=== PATIENT | male | born 1945 | race Caucasian/White ===

== ENCOUNTER 2021-09-27 08:44 | Emergency (ER) | payer OTHER ==
--- OUTSIDE RECORDS SUMMARY | 2021-09-27 08:51 | XMS REPORT | Continuity of Care Document ---
:1945 Author Organization [facility] t Address [address] [place] [address] Care Team Providers Name Role Phone TINY Primary Care Physician Unavailable MIKY Attending Clinician Unavailable Attending Clinician Unavailable Estefany PRAKASH Attending Clinician Unavailable YENY SALDANA Attending Clinician Unavailable NEIL BOLAÑOS Attending Clinician Unavailable Tisha LINDSEY, Not In Attending Clinician Unavailable Parvin Attending Clinician Unavailable Porfirio Attending Clinician [phone] Radiology Attending Clinician Unavailable Lab, Fam Pob I Attending Clinician Unavailable Collins Chaves Attending Clinician Collins CISSE Attending Clinician Unavailable Doctor Unassigned, Name Attending Clinician Unavailable IMAN MENDOZA Attending Clinician Unavailable Porfirio_Gordon Admitting Clinician Unavailable Payers Payer Name Policy Type Policy Number Effective Date Expiration Date S lorenzo [employer] MEDICARE PPO [id number] 2016 2021 00:00:00 00:00:00 [employer] (MEDICARE [id number] 2016 REPLACEMENT PPO) 00:00:00 Problems Condition Condition Condition Status Onset Resolution Last Treating Co mments Source Name Details Category Date Date Treatment Clinician Date 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 [facility] labrum labrum 0-28 Health anterior-t anterior-t 00:00: o-posterio o-posterio 00 r (SLAP) r (SLAP) tear of tear of left left shoulder shoulder Traumatic Traumatic Disease Active 2020-07 [facility] tear of tear of 0 Health supraspina supraspina 00:00: tus tendon tus tendon 00 of left of left shoulder shoulder Presence Presence Disease Active 2020-07 [facility] of left of left 0-07 Health artificial artificial 00:00: hip joint hip joint 00 Impingemen Impingemen Disease Active 2020-07 U T t syndrome t syndrome 007 He alth of left of left 00:00: shoulder shoulder 00 Acute pain Acute pain Disease Active 2020-07 U T of left of left 0- Health shoulder shoulder 00:00: 00 Left hip Left hip Disease Active [facility] pain pain 02-25 Health 00:00: 00 Primary Primary Disease Active UT osteoarthr osteoarthr 02-25 He alth itis of itis of 00:00: left hip left hip 00 Class 1 Class 1 Disease Active [facility] obesity obesity 02-25 Health due to due to 00:00: excess excess 00 calories calories with with serious serious comorbidit comorbidit y and body y and body mass index mass index (BMI) of (BMI) of 32.0 to 32.0 to 32.9 in 32.9 in adult adult Limp Limp Disease Active [facility] 02[facility] 00:00: 00 No known No known Disease Unive rs active active ity of problems problems [place] [facility] Allergies, Adverse Reactions, Alerts Allergy Allergy Status Severity Reaction(s) Onset Inactive Treating Comm ents Source Name Type Date Date Clinician Iodine Allergy Active [facility] to 02-25 Health substanc 00:00: e 00 Iodine Propensi Active Other - See SORE Uni vers And ty to comments 3-14 THROAT - ity of Iodide adverse 00:00: PT STATES [place] Containi reaction 00 he is not Med ical ng s allergic Branch Products to topical iodine IODINE Drug Active Other-Cmnt Univer s AND Class 3-14 ity of IODIDE 00:00: [place] CONTAINI 00 Medical NG Branch PRODUCTS Sulfa Propensi Active Other SORE [facility] Antibiot ty to 3-14 THROAT - Health ics adverse 00:00: PT STATES reaction 00 he is not s allergic to topical iodine Social History Social Habit Start Date Stop Date Quantity Comments Source Exposure to Not sure [facility] SARS-CoV-2 (event) Tobacco use and 2019-06-11 2019-06-11 Never used Universit y of exposure 00:00:00 00:00:00 [facility] Alcohol intake 2019-06-11 2019-06-11 Current drinker of Un iversity of 00:00:00 00:00:00 alcohol (finding) [place] [facility] History [facility] 2018-12-06 2018-12-06 2 University o f Alcohol Frequency 00:00:00 00:00:00 [place] [facility] History [facility] 2018-12-06 2018-12-06 1 University o f Alcohol Std 00:00:00 00:00:00 [place] [facility] History [facility] 2018-12-06 2018-12-06 1 University o f Alcohol Binge 00:00:00 00:00:00 [place] [facility] Alcohol Comment 2018-12-06 2018-12-06 Patient states he Un iversity of 00:00:00 00:00:00 occasionally [place] [facility]. Branch Sex Ass[birth year] At [birth year] [facility] of 00:00:00 00:00:00 [facility] Smoking Status Start Date Stop Date Source Never smoked tobacco [facility] Medications Ordered Filled Start Stop Current Ordering Indication Dosage Frequency Signature Comments Components Source Medication Medication Date Date Medication? Clinician (SIG) Name Name bupivacaine 2021- No [id number] 1mL UT (Marcaine) 09-10 Health 0.25 % 16:52: 16:52 injection 1 13 :00 mL lidocaine 2021- No [id number] 1mL UT (Xylocaine) 09-10 Health 1 % 16:52: 16:52 injection 1 13 :00 mL triamcinolo 2021- No [id number] 10mg UT ne 09-10 Health acetonide 16:52: 16:52 (Kenalog) 13 :00 10 MG/ML injection 10 mg triamcinolo 2021- No [id number] 10mg 10 mg, UT ne 09-10 [facility] acetonide 16:52: 16:52 cular, (Kenalog) 13 :00 Once PRN 10 MG/ML Procedure, injection Starting 10 mg on Sherice 3/10/22 at 1052, For 1 dose lidocaine 2021- No [id number] 1mL 1 mL, U T (Xylocaine) 09-10 Injection, H ealth 1 % 16:52: 16:52 Once PRN injection 1 13 :00 Procedure, mL Starting on Sherice 09/10/21 at 1052, For 1 dose bupivacaine 2021- No [id number] 1mL 1 mL, UT (Marcaine) 09-10 Injection, He alth 0.25 % 16:52: 16:52 Once PRN injection 1 13 :00 Procedure, mL Starting on Sherice 09/10/21 at 1052, For 1 dose Diclofenac 2021- Yes [id number] Apply UT Sodium 09-10 [id number] topically H ealth (Voltaren) 00:00: 04:59 3D 3 (three) 1 % 00 :00 times a external day if gel needed (pain). APPLY 4 GRAMS TO AFFECTED AREA DO NOT EXCEED 16 GRAMS every day amoxicillin 2020-07 Yes [id number] Take 4 UT (Amoxil) 08-12 capsules Health 500 MG 00:00: one hour capsule 00 prior to procedure. Take 4 capsules one hour after procedure. amoxicillin 2020-07 Yes [id number] Take 4 UT (Amoxil) 2- capsules Health 500 MG 00:00: one hour capsule 00 prior to procedure. Take 4 capsules one hour after procedure. Diclofenac 2020-07- No [id number] Q.[id number] Apply UT Sodium 08-12 [id number] topically H ealth (Voltaren) 00:00: 05:59 3D 3 (three) 1 % 00 :00 times a external day if gel needed (pain). Apply 4 grams to affected area do not exceed 16 grams every day amoxicillin 2020-07- No [id number] Take 4 UT (Amoxil) 08-12 capsules Health 500 MG 00:00: 00:00 one hour capsule 00 :00 prior to procedure. Take 4 capsules one hour after procedure. naloxone 2020-07- No [id number] .4mg Administer UT (Narcan) 2 0-29 10-30 0.4 mL Health MG/2ML 00:00: 04:59 (0.4 mg injection 00 :00 total) into affected nostril(s) if needed for opioid reversal. May repeat every 2-3 minutes as needed until medical assistance available. naloxone 2020-07- No [id number] .4mg Administer UT (Narcan) 2 0-29 10-30 0.4 mL Health MG/2ML 00:00: 04:59 (0.4 mg injection 00 :00 total) into affected nostril(s) if needed for opioid reversal. May repeat every 2-3 minutes as needed until medical assistance available. naloxone 2020-07- No [id number] .4mg Administer UT (Narcan) 2 0-29 10-30 0.4 mL Health MG/2ML 00:00: 04:59 (0.4 mg injection 00 :00 total) into affected nostril(s) if needed for opioid reversal. May repeat every 2-3 minutes as needed until medical assistance available. HYDROcodone 2020-07- No [id number] 1{tbl} Take 1 UT -acetaminop 0-29 12-29 tablet by He alth hen ([place]) 00:00: 05:59 mouth 10-325 MG 00 :00 every 4 tablet (four) hours if needed for severe pain (Pain). HYDROcodone 2020-07 No [id number] 1{tbl} Take 1 UT -acetaminop 0-29 12-29 tablet by He alth hen ([place]) 00:00: 05:59 mouth 10-325 MG 00 :00 every 4 tablet (four) hours if needed for severe pain (Pain). bupivacaine 2020-07- No [id number] 1mL UT (Marcaine) 0-04-30 Health 0.25 % 14:38: 14:38 injection 1 38 :00 mL lidocaine 2020-07- No [id number] 1mL UT (Xylocaine) 0- 10-28 Health 1 % 14:38: 14:38 injection 1 38 :00 mL triamcinolo 2020-07- No [id number] 10mg UT ne 0-28 10-28 Health acetonide 14:38: 14:38 (Kenalog) 38 :00 10 MG/ML injection 10 mg triamcinolo 2020-07 No [id number] 10mg 10 mg, UT ne 0-30 04- [facility] acetonide 14:38: 14:38 cular, (Kenalog) 38 :00 Once PRN 10 MG/ML Procedure, injection Starting 10 mg on Sherice 04/30/21 at 0938, For 1 dose lidocaine 2020-07- No [id number] 1mL 1 mL, U T (Xylocaine) 004-30 Injection, H ealth 1 % 14:38: 14:38 Once PRN injection 1 38 :00 Procedure, mL Starting on Sherice 04/30/21 at 0938, For 1 dose bupivacaine 2020-07- No [id number] 1mL 1 mL, UT (Marcaine) 004-30 Injection, He alth 0.25 % 14:38: 14:38 Once PRN injection 1 38 :00 Procedure, mL Starting on Sherice 04/30/21 at 0938, For 1 dose Diclofenac 2020-07- No [id number] Q.[id number] Apply UT Sodium 0-28 - 9104 [id number] topically H ealth (Voltaren) 00:00: 05:59 3D 3 (three) 1 % 00 :00 times a external day if gel needed (pain). Apply four grams to affected area not to exceed 16 grams every day Diclofenac 2020-07- No [id number] Q.[id number] Apply UT Sodium 0-31 05- 9104 [id number] topically H ealth (Voltaren) 00:00: 05:59 3D 3 (three) 1 % 00 :00 times a external day if gel needed (pain). Apply four grams to affected area not to exceed 16 grams every day Diclofenac 2020-07- No [id number] Apply UT Sodium 0- 11- [id number] topically H ealth (Voltaren) 00:00: 04:59 3D 3 (three) 1 % 00 :00 times a external day if gel needed (pain). Diclofenac 2020-07- No [id number] Q.[id number] Apply UT Sodium 0-07 11- [id number] topically H ealth (Voltaren) 00:00: 04:59 3D 3 (three) 1 % 00 :00 times a external day if gel needed (pain). Diclofenac 2020-07 [id number] Q.[id number] Apply UT Sodium 0-07 04-30 [id number] topically H ealth (Voltaren) 00:00: 00:00 3D 3 (three) 1 % 00 :00 times a external day if gel needed (pain). omeprazole 2020-07 Yes [id number] TAKE 1 UT (PriLOSEC) 0-04 CAPSULE BY [facility]a l[facility] [address] 00:00: MOUTH capsule 00 EVERY DAY IN THE MORNING BEFORE BREAKFAST omeprazole 2020-07 Yes [id number] TAKE 1 UT (PriLOSEC) 0-04 CAPSULE BY [facility] [address] 00:00: MOUTH capsule 00 EVERY DAY IN THE MORNING BEFORE BREAKFAST omeprazole 2020-07 Yes [id number] TAKE 1 UT (PriLOSEC) 0-04 CAPSULE BY [facility]a [facility] [address] 00:00: MOUTH capsule 00 EVERY DAY IN THE MORNING BEFORE BREAKFAST omeprazole 2020-07 Yes [id number] TAKE 1 UT (PriLOSEC) 0-04 CAPSULE BY [facility]a [facility] [address] 00:00: MOUTH capsule 00 EVERY DAY IN THE MORNING BEFORE BREAKFAST omeprazole 2020-07 Yes [id number] TAKE 1 UT (PriLOSEC) 0-04 CAPSULE BY [facility]a [facility] [address] 00:00: MOUTH capsule 00 EVERY DAY IN THE MORNING BEFORE BREAKFAST omeprazole 2020-07 Yes [id number] TAKE 1 UT (PriLOSEC) 0-04 CAPSULE BY [facility]a [facility] [address] 00:00: MOUTH capsule 00 EVERY DAY IN THE MORNING BEFORE BREAKFAST omeprazole 2020-07 Yes [id number] TAKE 1 UT (PriLOSEC) 0-04 CAPSULE BY [facility]a [facility] [address] 00:00: MOUTH capsule 00 EVERY DAY IN THE MORNING BEFORE BREAKFAST omeprazole 2020-07 Yes [id number] TAKE 1 UT (PriLOSEC) 0-04 CAPSULE BY [facility]a l[facility] [address] 00:00: MOUTH capsule 00 EVERY DAY IN THE MORNING BEFORE BREAKFAST omeprazole 2020-07 Yes [id number] TAKE 1 UT (PriLOSEC) 0-04 CAPSULE BY [facility]a lth [address] 00:00: MOUTH capsule 00 EVERY DAY IN THE MORNING BEFORE BREAKFAST oxyCODONE-a 0 Yes [id number] 1{tbl} Take 1 UT cetaminophe 9-10 9108 tablet by [facility] n 00:00: mouth (Percocet) 00 every 4 10-325 MG (four) tablet hours if needed (pain) for up to 60 doses. tamsulosin 0 Yes [id number] .4mg QD Take 1 U T (Flomax) 9-10 capsule Health 0.4 MG 24 00:00: (0.4 mg hr capsule 00 total) by mouth 1 (one) time each day. oxyCODONE-a Yes [id number] 1{tbl} Take 1 UT cetaminophe 9-10 9108 tablet by [facility] n 00:00: mouth (Percocet) 00 every 4 10-325 MG (four) tablet hours if needed (pain) for up to 60 doses. tamsulosin 0 Yes [id number] .4mg QD Take 1 U T (Flomax) 9-10 capsule Health 0.4 MG 24 00:00: (0.4 mg hr capsule 00 total) by mouth 1 (one) time each day. oxyCODONE-a 2020- Yes [id number] 1{tbl} Take 1 UT cetaminophe 9-10 9108 tablet by [facility] n 00:00: mouth (Percocet) 00 every 4 10-325 MG (four) tablet hours if needed (pain) for up to 60 doses. tamsulosin 0 Yes [id number] .4mg QD Take 1 U T (Flomax) 9-10 capsule Health 0.4 MG 24 00:00: (0.4 mg hr capsule 00 total) by mouth 1 (one) time each day. oxyCODONE-a 2020-0 Yes [id number] 1{tbl} Take 1 UT cetaminophe 9-10 9108 tablet by [facility] n 00:00: mouth (Percocet) 00 every 4 10-325 MG (four) tablet hours if needed (pain) for up to 60 doses. tamsulosin 2020-0 Yes [id number] .4mg QD Take 1 U T (Flomax) 9-10 capsule Health 0.4 MG 24 00:00: (0.4 mg hr capsule 00 total) by mouth 1 (one) time each day. oxyCODONE-a Yes [id number] 1{tbl} Take 1 UT cetaminophe 9-10 9108 tablet by [facility] n 00:00: mouth (Percocet) 00 every 4 10-325 MG (four) tablet hours if needed (pain) for up to 60 doses. tamsulosin Yes [id number] .4mg QD Take 1 U T (Flomax) 9-10 capsule Health 0.4 MG 24 00:00: (0.4 mg hr capsule 00 total) by mouth 1 (one) time each day. oxyCODONE-a Yes [id number] 1{tbl} Take 1 UT cetaminophe 9-10 9108 tablet by [facility] n 00:00: mouth (Percocet) 00 every 4 10-325 MG (four) tablet hours if needed (pain) for up to 60 doses. tamsulosin Yes [id number] .4mg QD Take 1 U T (Flomax) 9-10 capsule Health 0.4 MG 24 00:00: (0.4 mg hr capsule 00 total) by mouth 1 (one) time each day. oxyCODONE-a Yes [id number] 1{tbl} Take 1 UT cetaminophe 9-10 9108 tablet by [facility] n 00:00: mouth (Percocet) 00 every 4 10-325 MG (four) tablet hours if needed (pain) for up to 60 doses. oxyCODONE-a Yes [id number] 1{tbl} Take 1 UT cetaminophe 9-10 9108 tablet by [facility] n 00:00: mouth (Percocet) 00 every 4 10-325 MG (four) tablet hours if needed (pain) for up to 60 doses. tamsulosin 0 Yes [id number] .4mg QD Take 1 U T (Flomax) 9-10 capsule Health 0.4 MG 24 00:00: (0.4 mg hr capsule 00 total) by mouth 1 (one) time each day. oxyCODONE-a Yes [id number] 1{tbl} Take 1 UT cetaminophe 9-10 9108 tablet by [facility] n 00:00: mouth (Percocet) 00 every 4 10-325 MG (four) tablet hours if needed (pain) for up to 60 doses. tamsulosin 2020-0 Yes [id number] .4mg QD Take 1 U T (Flomax) 9-10 capsule Health 0.4 MG 24 00:00: (0.4 mg hr capsule 00 total) by mouth 1 (one) time each day. oxyCODONE-a 0 Yes [id number] 1{tbl} Take 1 UT cetaminophe 9-10 9108 tablet by [facility] n 00:00: mouth (Percocet) 00 every 4 10-325 MG (four) tablet hours if needed (pain) for up to 60 doses. tamsulosin 2020-0 Yes [id number] .4mg QD Take 1 U T (Flomax) 9-10 capsule Health 0.4 MG 24 00:00: (0.4 mg hr capsule 00 total) by mouth 1 (one) time each day. oxyCODONE-a 2020-0 Yes [id number] 1{tbl} Take 1 UT cetaminophe 9-10 9108 tablet by [facility] n 00:00: mouth (Percocet) 00 every 4 10-325 MG (four) tablet hours if needed (pain) for up to 60 doses. tamsulosin 2020-0 Yes [id number] .4mg QD Take 1 U T (Flomax) 9-10 capsule Health 0.4 MG 24 00:00: (0.4 mg hr capsule 00 total) by mouth 1 (one) time each day. oxyCODONE-a 2020-0 Yes [id number] 1{tbl} Take 1 UT cetaminophe 9-10 9108 tablet by [facility] n 00:00: mouth (Percocet) 00 every 4 10-325 MG (four) tablet hours if needed (pain) for up to 60 doses. tamsulosin 2020-0 Yes [id number] .4mg QD Take 1 U T (Flomax) 9-10 capsule Health 0.4 MG 24 00:00: (0.4 mg hr capsule 00 total) by mouth 1 (one) time each day. oxyCODONE-a 2020-0 Yes [id number] 1{tbl} Take 1 UT cetaminophe 9-10 9108 tablet by [facility] n 00:00: mouth (Percocet) 00 every 4 10-325 MG (four) tablet hours if needed (pain) for up to 60 doses. tamsulosin 2020-0 Yes [id number] .4mg QD Take 1 U T (Flomax) 9-10 capsule Health 0.4 MG 24 00:00: (0.4 mg hr capsule 00 total) by mouth 1 (one) time each day. oxyCODONE-a 2020-0 Yes [id number] 1{tbl} Take 1 UT cetaminophe 9-10 9108 tablet by [facility] n 00:00: mouth (Percocet) 00 every 4 10-325 MG (four) tablet hours if needed (pain) for up to 60 doses. tamsulosin 2020-0 Yes [id number] .4mg QD Take 1 U T (Flomax) 9-10 capsule Health 0.4 MG 24 00:00: (0.4 mg hr capsule 00 total) by mouth 1 (one) time each day. oxyCODONE-a 2020-0 Yes [id number] 1{tbl} Take 1 UT cetaminophe 9-10 9108 tablet by [facility] n 00:00: mouth (Percocet) 00 every 4 10-325 MG (four) tablet hours if needed (pain) for up to 60 doses. tamsulosin 2020-0 Yes [id number] .4mg QD Take 1 U T (Flomax) 9-10 capsule Health 0.4 MG 24 00:00: (0.4 mg hr capsule 00 total) by mouth 1 (one) time each day. dexamethaso 2020-0 Yes [id number] 2 mg UT ne 9-09 tablets to Health (Decadron) 00:00: be taken 2 MG tablet 00 by mouth.POD# 1: 2 tablets @ 9 amPOD#2 : 2 tablets @ 9 amPOD#3 : 1 tablet @ 9 am dexamethaso 2020-0 Yes [id number] 2 mg UT ne 9-09 tablets to Health (Decadron) 00:00: be taken 2 MG tablet 00 by mouth.POD# 1: 2 tablets @ 9 amPOD#2 : 2 tablets @ 9 amPOD#3 : 1 tablet @ 9 am dexamethaso 2021-0 Yes [id number] 2 mg UT ne 03-12 tablets to Health (Decadron) 00:00: be taken 2 MG tablet 00 by mouth.POD# 1: 2 tablets @ 9 amPOD#2 : 2 tablets @ 9 amPOD#3 : 1 tablet @ 9 am dexamethaso 2021-0 Yes [id number] 2 mg UT ne 03-12 tablets to Health (Decadron) 00:00: be taken 2 MG tablet 00 by mouth.POD# 1: 2 tablets @ 9 amPOD#2 : 2 tablets @ 9 amPOD#3 : 1 tablet @ 9 am dexamethaso 2021-0 Yes [id number] 2 mg UT ne 03-12 tablets to Health (Decadron) 00:00: be taken 2 MG tablet 00 by mouth.POD# 1: 2 tablets @ 9 amPOD#2 : 2 tablets @ 9 amPOD#3 : 1 tablet @ 9 am dexamethaso 2021-0 Yes [id number] 2 mg UT ne 03-12 tablets to Health (Decadron) 00:00: be taken 2 MG tablet 00 by mouth.POD# 1: 2 tablets @ 9 amPOD#2 : 2 tablets @ 9 amPOD#3 : 1 tablet @ 9 am dexamethaso 2021-0 Yes [id number] 2 mg UT ne 03-12 tablets to Health (Decadron) 00:00: be taken 2 MG tablet 00 by mouth.POD# 1: 2 tablets @ 9 amPOD#2 : 2 tablets @ 9 amPOD#3 : 1 tablet @ 9 am dexamethaso 2021-0 Yes [id number] 2 mg UT ne 03-12 tablets to Health (Decadron) 00:00: be taken 2 MG tablet 00 by mouth.POD# 1: 2 tablets @ 9 amPOD#2 : 2 tablets @ 9 amPOD#3 : 1 tablet @ 9 am dexamethaso 2021-0 Yes [id number] 2 mg UT ne 03-12 tablets to Health (Decadron) 00:00: be taken 2 MG tablet 00 by mouth.POD# 1: 2 tablets @ 9 amPOD#2 : 2 tablets @ 9 amPOD#3 : 1 tablet @ 9 am dexamethaso 2021-0 Yes [id number] 2 mg UT ne 03-12 tablets to Health (Decadron) 00:00: be taken 2 MG tablet 00 by mouth.POD# 1: 2 tablets @ 9 amPOD#2 : 2 tablets @ 9 amPOD#3 : 1 tablet @ 9 am dexamethaso 2021-0 Yes [id number] 2 mg UT ne 03-12 tablets to Health (Decadron) 00:00: be taken 2 MG tablet 00 by mouth.POD# 1: 2 tablets @ 9 amPOD#2 : 2 tablets @ 9 amPOD#3 : 1 tablet @ 9 am dexamethaso 2021-0 Yes [id number] 2 mg UT ne 03-12 tablets to Health (Decadron) 00:00: be taken 2 MG tablet 00 by mouth.POD# 1: 2 tablets @ 9 amPOD#2 : 2 tablets @ 9 amPOD#3 : 1 tablet @ 9 am dexamethaso 2021-0 Yes [id number] 2 mg UT ne 03-12 tablets to Health (Decadron) 00:00: be taken 2 MG tablet 00 by mouth.POD# 1: 2 tablets @ 9 amPOD#2 : 2 tablets @ 9 amPOD#3 : 1 tablet @ 9 am dexamethaso 1-0 Yes [id number] 2 mg UT ne 03-12 tablets to Health (Decadron) 00:00: be taken 2 MG tablet 00 by mouth.POD# 1: 2 tablets @ 9 amPOD#2 : 2 tablets @ 9 amPOD#3 : 1 tablet @ 9 am enoxaparin 2020-0 2020- No [id number] 40mg Inject 0.4 UT (Lovenox) 03-12-20 mL (40 mg Heal th 40 MG/0.4ML 00:00: 04:59 total) solution 00 :00 under the skin 1 (one) time each day in the morning for 10 days. 1 injection a day, everday @ 9am enoxaparin 2020-0 2020- No [id number] 40mg Inject 0.4 UT (Lovenox) 03-12-20 mL (40 mg Heal th 40 MG/0.4ML 00:00: 04:59 total) solution 00 :00 under the skin 1 (one) time each day in the morning for 10 days. 1 injection a day, everday @ 9am enoxaparin 2020- No [id number] 40mg Inject 0.4 UT (Lovenox) 03-1220 mL (40 mg Heal th 40 MG/0.4ML 00:00: 04:59 total) solution 00 :00 under the skin 1 (one) time each day in the morning for 10 days. 1 injection a day, everday @ 9am enoxaparin 2020- No [id number] 40mg Inject 0.4 UT (Lovenox) 03-1220 mL (40 mg Heal th 40 MG/0.4ML 00:00: 04:59 total) solution 00 :00 under the skin 1 (one) time each day in the morning for 10 days. 1 injection a day, ever @ 9am ondansetron 2020- No [id number] 4mg Take 1 UT ODT (Zofran 03-12 tablet (4 He alth ODT) 4 MG 00:00: 04:59 mg total) disintegrat 00 :00 by mouth ing tablet every 8 (eight) hours if needed for nausea or vomiting for up to 7 days. sulfamethox 2020- No [id number] 1{tbl} Q.5D Take 1 UT azole-trime 03-12 tablet by He alth thoprim 00:00: 04:59 mouth 2 (Bactrim 00 :00 (two) DS) 800-160 times a MG tablet day for 7 days. ondansetron 2020- No [id number] 4mg Take 1 UT ODT (Zofran 03-12 tablet (4 He alth ODT) 4 MG 00:00: 04:59 mg total) disintegrat 00 :00 by mouth ing tablet every 8 (eight) hours if needed for nausea or vomiting for up to 7 days. sulfamethox 2020- No [id number] 1{tbl} Q.5D Take 1 UT azole-trime 03-12 tablet by He alth thoprim 00:00: 04:59 mouth 2 (Bactrim 00 :00 (two) DS) 800-160 times a MG tablet day for 7 days. ondansetron 2020- No [id number] 4mg Take 1 UT ODT (Zofran 03-12 tablet (4 He alth ODT) 4 MG 00:00: 04:59 mg total) disintegrat 00 :00 by mouth ing tablet every 8 (eight) hours if needed for nausea or vomiting for up to 7 days. sulfamethox 2020- No [id number] 1{tbl} Q.5D Take 1 UT azole-trime 03-12 tablet by He alth thoprim 00:00: 04:59 mouth 2 (Bactrim 00 :00 (two) DS) 800-160 times a MG tablet day for 7 days. ondansetron 2020- No [id number] 4mg Take 1 UT ODT (Zofran 03-12 tablet (4 He alth ODT) 4 MG 00:00: 04:59 mg total) disintegrat 00 :00 by mouth ing tablet every 8 (eight) hours if needed for nausea or vomiting for up to 7 days. sulfamethox 2020- No [id number] 1{tbl} Q.5D Take 1 UT azole-trime 03-12 tablet by He alth thoprim 00:00: 04:59 mouth 2 (Bactrim 00 :00 (two) DS) 800-160 times a MG tablet day for 7 days. ketorolac 2020- No [id number] 10mg Q8H Take 1 U T (Toradol) 03-12 tablet (10 [facility]a [facility] 10 MG 00:00: 04:59 mg total) tablet 00 :00 by mouth every 8 (eight) hours for 3 doses. Take 1 tablet every 8 hours, day after surgery9 am, 5pm, 1 am ketorolac 2020- No [id number] 10mg Q8H Take 1 U T (Toradol) 03-12 tablet (10 [facility]a [facility]th 10 MG 00:00: 04:59 mg total) tablet 00 :00 by mouth every 8 (eight) hours for 3 doses. Take 1 tablet every 8 hours, day after surgery9 am, 5pm, 1 am Multiple 2020- Yes 1{tbl} Take 1 UT Vitamins-Mi 8-25 tablet by Hea [facility]th nerals 13:33: mouth. (Complete) 18 tablet Multiple Yes 1{tbl} Take 1 UT Vitamins-Mi 8-25 tablet by [facility] nerals 13:33: mouth. (Complete) 18 tablet Multiple 0 Yes 1{tbl} Take 1 UT Vitamins-Mi 8-25 tablet by [facility] nerals 13:33: mouth. (Complete) 18 tablet Coenzyme Yes 1{tbl} Take 1 UT Q10 (CoQ10) 8-25 tablet by [facility] lt 100 MG 13:33: mouth. capsule 17 omega-3 Yes 1{tbl} Take 1 UT 1000 MG 8-25 tablet by Health capsule 13:33: mouth. 17 amLODIPine Yes amlodipine U T (Norvasc) 5 8-25 5 mg Health MG tablet 13:33: tablet 17 TAKE 1 TABLET BY MOUTH EVERYDAY AT BEDTIME aspirin 81 2020-0 Yes 81mg Chew 81 UT MG chewable 8-25 mg. Health tablet 13:33: 17 lisinopril- Yes lisinopril UT hydroCHLORO 8-25 10 Health thiazide 13:33: mg-hydroch 10-12.5 MG 17 lorothiazi tablet de 12.5 mg tablet TAKE 1 TABLET BY MOUTH TWICE A DAY Coenzyme Yes 1{tbl} Take 1 UT Q10 (CoQ10) 8-25 tablet by [facility] 100 MG 13:33: mouth. capsule 17 omega-3 Yes 1{tbl} Take 1 UT 1000 MG 8-25 tablet by Health capsule 13:33: mouth. 17 amLODIPine Yes amlodipine U T (Norvasc) 5 8-25 5 mg Health MG tablet 13:33: tablet 17 TAKE 1 TABLET BY MOUTH EVERYDAY AT BEDTIME aspirin 81 2020-0 Yes 81mg Chew 81 UT MG chewable 8-25 mg. Health tablet 13:33: 17 lisinopril- 0 Yes lisinopril UT hydroCHLORO 8-25 10 Health thiazide 13:33: mg-hydroch 10-12.5 MG 17 lorothiazi tablet de 12.5 mg tablet TAKE 1 TABLET BY MOUTH TWICE A DAY Coenzyme Yes 1{tbl} Take 1 UT Q10 (CoQ10) 8-25 tablet by [facility] 100 MG 13:33: mouth. capsule 17 omega-3 Yes 1{tbl} Take 1 UT 1000 MG 8-25 tablet by Health capsule 13:33: mouth. 17 amLODIPine Yes amlodipine U T (Norvasc) 5 8-25 5 mg Health MG tablet 13:33: tablet 17 TAKE 1 TABLET BY MOUTH EVERYDAY AT BEDTIME aspirin 81 Yes 81mg Chew 81 UT MG chewable 8-25 mg. Health tablet 13:33: 17 lisinopril- Yes lisinopril UT hydroCHLORO 8-25 10 Health thiazide 13:33: mg-hydroch 10-12.5 MG 17 lorothiazi tablet de 12.5 mg tablet TAKE 1 TABLET BY MOUTH TWICE A DAY Multiple Yes 1{tbl} Take 1 UT Vitamins-Mi 8-25 tablet by [facility] nerals 08:33: mouth. (Complete) 18 tablet Multiple Yes 1{tbl} Take 1 UT Vitamins-Mi 8-25 tablet by [facility] nerals 08:33: mouth. (Complete) 18 tablet Multiple Yes 1{tbl} Take 1 UT Vitamins-Mi 8-25 tablet by [facility] nerals 08:33: mouth. (Complete) 18 tablet Multiple Yes 1{tbl} Take 1 UT Vitamins-Mi 8-25 tablet by [facility] nerals 08:33: mouth. (Complete) 18 tablet Multiple Yes 1{tbl} Take 1 UT Vitamins-Mi 8-25 tablet by [facility] nerals 08:33: mouth. (Complete) 18 tablet Multiple Yes 1{tbl} Take 1 UT Vitamins-Mi 8-25 tablet by [facility] nerals 08:33: mouth. (Complete) 18 tablet Multiple Yes 1{tbl} Take 1 UT Vitamins-Mi 8-25 tablet by [facility] nerals 08:33: mouth. (Complete) 18 tablet Multiple Yes 1{tbl} Take 1 UT Vitamins-Mi 8-25 tablet by [facility] nerals 08:33: mouth. (Complete) 18 tablet Multiple Yes 1{tbl} Take 1 UT Vitamins-Mi 8-25 tablet by [facility] nerals 08:33: mouth. (Complete) 18 tablet Multiple Yes 1{tbl} Take 1 UT Vitamins-Mi 8-25 tablet by [facility] nerals 08:33: mouth. (Complete) 18 tablet Multiple Yes 1{tbl} Take 1 UT Vitamins-Mi 8-25 tablet by [facility] nerals 08:33: mouth. (Complete) 18 tablet Multiple Yes 1{tbl} Take 1 UT Vitamins-Mi 8-25 tablet by [facility] nerals 08:33: mouth. (Complete) 18 tablet Multiple Yes 1{tbl} Take 1 UT Vitamins-Mi 8-25 tablet by [facility] nerals 08:33: mouth. (Complete) 18 tablet Multiple Yes 1{tbl} Take 1 UT Vitamins-Mi 8-25 tablet by [facility] nerals 08:33: mouth. (Complete) 18 tablet Multiple Yes 1{tbl} Take 1 UT Vitamins-Mi 8-25 tablet by [facility] nerals 08:33: mouth. (Complete) 18 tablet Multiple Yes 1{tbl} Take 1 UT Vitamins-Mi 8-25 tablet by [facility] nerals 08:33: mouth. (Complete) 18 tablet Multiple Yes 1{tbl} Take 1 UT Vitamins-Mi 8-25 tablet by [facility] nerals 08:33: mouth. (Complete) 18 tablet Multiple Yes 1{tbl} Take 1 UT Vitamins-Mi 8-25 tablet by [facility] nerals 08:33: mouth. (Complete) 18 tablet amLODIPine Yes amlodipine U T (Norvasc) 5 8-25 5 mg Health MG tablet 08:33: tablet 17 TAKE 1 TABLET BY MOUTH EVERYDAY AT BEDTIME aspirin 81 Yes 81mg Chew 81 UT MG chewable 8-25 mg. Health tablet 08:33: 17 lisinopril- Yes lisinopril UT hydroCHLORO 8-25 10 Health thiazide 08:33: mg-hydroch 10-12.5 MG 17 lorothiazi tablet de 12.5 mg tablet TAKE 1 TABLET BY MOUTH TWICE A DAY Coenzyme 2021-0 Yes 1{tbl} Take 1 UT Q10 (CoQ10) 8-25 tablet by [facility] 100 MG 08:33: mouth. capsule 17 omega-3 Yes 1{tbl} Take 1 UT 1000 MG 8-25 tablet by Health capsule 08:33: mouth. 17 amLODIPine 0 Yes amlodipine U T (Norvasc) 5 8-25 5 mg Health MG tablet 08:33: tablet 17 TAKE 1 TABLET BY MOUTH EVERYDAY AT BEDTIME aspirin 81 2020-0 Yes 81mg Chew 81 [facility] MG chewable 8-25 mg. Health tablet 08:33: 17 lisinopril- 0 Yes lisinopril UT hydroCHLORO 8-25 10 Health thiazide 08:33: mg-hydroch 10-12.5 MG 17 lorothiazi tablet de 12.5 mg tablet TAKE 1 TABLET BY MOUTH TWICE A DAY Coenzyme Yes 1{tbl} Take 1 UT Q10 (CoQ10) 8-25 tablet by [facility] 100 MG 08:33: mouth. capsule 17 omega-3 Yes 1{tbl} Take 1 UT 1000 MG 8-25 tablet by Health capsule 08:33: mouth. 17 amLODIPine Yes amlodipine U T (Norvasc) 5 8-25 5 mg Health MG tablet 08:33: tablet 17 TAKE 1 TABLET BY MOUTH EVERYDAY AT BEDTIME aspirin 81 2020-0 Yes 81mg Chew 81 UT MG chewable 8-25 mg. Health tablet 08:33: 17 lisinopril- Yes lisinopril UT hydroCHLORO 8-25 10 Health thiazide 08:33: mg-hydroch 10-12.5 MG 17 lorothiazi tablet de 12.5 mg tablet TAKE 1 TABLET BY MOUTH TWICE A DAY Coenzyme Yes 1{tbl} Take 1 UT Q10 (CoQ10) 8-25 tablet by [facility] 100 MG 08:33: mouth. capsule 17 omega-3 Yes 1{tbl} Take 1 UT 1000 MG 8-25 tablet by Health capsule 08:33: mouth. 17 amLODIPine 0 Yes amlodipine U T (Norvasc) 5 8-25 5 mg Health MG tablet 08:33: tablet 17 TAKE 1 TABLET BY MOUTH EVERYDAY AT BEDTIME aspirin 81 2021-0 Yes 81mg Chew 81 UT MG chewable 8-25 mg. Health tablet 08:33: 17 lisinopril- 0 Yes lisinopril UT hydroCHLORO 8-25 10 Health thiazide 08:33: mg-hydroch 10-12.5 MG 17 lorothiazi tablet de 12.5 mg tablet TAKE 1 TABLET BY MOUTH TWICE A DAY Coenzyme 0 Yes 1{tbl} Take 1 UT Q10 (CoQ10) 8-25 tablet by [facility] 100 MG 08:33: mouth. capsule 17 omega-3 Yes 1{tbl} Take 1 UT 1000 MG 8-25 tablet by Health capsule 08:33: mouth. 17 amLODIPine Yes amlodipine U T (Norvasc) 5 8-25 5 mg Health MG tablet 08:33: tablet 17 TAKE 1 TABLET BY MOUTH EVERYDAY AT BEDTIME aspirin 81 2020-0 Yes 81mg Chew 81 UT MG chewable 8-25 mg. Health tablet 08:33: 17 lisinopril- Yes lisinopril UT hydroCHLORO 8-25 10 Health thiazide 08:33: mg-hydroch 10-12.5 MG 17 lorothiazi tablet de 12.5 mg tablet TAKE 1 TABLET BY MOUTH TWICE A DAY Coenzyme Yes 1{tbl} Take 1 UT Q10 (CoQ10) 8-25 tablet by [facility] 100 MG 08:33: mouth. capsule 17 omega-3 Yes 1{tbl} Take 1 UT 1000 MG 8-25 tablet by Health capsule 08:33: mouth. 17 amLODIPine Yes amlodipine U T (Norvasc) 5 8-25 5 mg Health MG tablet 08:33: tablet 17 TAKE 1 TABLET BY MOUTH EVERYDAY AT BEDTIME aspirin 81 2020-0 Yes 81mg Chew 81 UT MG chewable 8-25 mg. Health tablet 08:33: 17 lisinopril- 0 Yes lisinopril UT hydroCHLORO 8-25 10 Health thiazide 08:33: mg-hydroch 10-12.5 MG 17 lorothiazi tablet de 12.5 mg tablet TAKE 1 TABLET BY MOUTH TWICE A DAY Coenzyme Yes 1{tbl} Take 1 UT Q10 (CoQ10) 8-25 tablet by [facility] 100 MG 08:33: mouth. capsule 17 omega-3 Yes 1{tbl} Take 1 UT 1000 MG 8-25 tablet by Health capsule 08:33: mouth. 17 amLODIPine 0 Yes amlodipine U T (Norvasc) 5 8-25 5 mg Health MG tablet 08:33: tablet 17 TAKE 1 TABLET BY MOUTH EVERYDAY AT BEDTIME aspirin 81 202-0 Yes 81mg Chew 81 UT MG chewable 8-25 mg. Health tablet 08:33: 17 lisinopril- 0 Yes lisinopril UT hydroCHLORO 8-25 10 Health thiazide 08:33: mg-hydroch 10-12.5 MG 17 lorothiazi tablet de 12.5 mg tablet TAKE 1 TABLET BY MOUTH TWICE A DAY Coenzyme 0 Yes 1{tbl} Take 1 UT Q10 (CoQ10) 8-25 tablet by [facility] 100 MG 08:33: mouth. capsule 17 omega-3 Yes 1{tbl} Take 1 UT 1000 MG 8-25 tablet by Health capsule 08:33: mouth. 17 amLODIPine Yes amlodipine U T (Norvasc) 5 8-25 5 mg Health MG tablet 08:33: tablet 17 TAKE 1 TABLET BY MOUTH EVERYDAY AT BEDTIME aspirin 81 2020-0 Yes 81mg Chew 81 UT MG chewable 8-25 mg. Health tablet 08:33: 17 lisinopril- 0 Yes lisinopril UT hydroCHLORO 8-25 10 Health thiazide 08:33: mg-hydroch 10-12.5 MG 17 lorothiazi tablet de 12.5 mg tablet TAKE 1 TABLET BY MOUTH TWICE A DAY Coenzyme 0 Yes 1{tbl} Take 1 UT Q10 (CoQ10) 8-25 tablet by [facility] 100 MG 08:33: mouth. capsule 17 omega-3 Yes 1{tbl} Take 1 UT 1000 MG 8-25 tablet by Health capsule 08:33: mouth. 17 amLODIPine 0 Yes amlodipine U T (Norvasc) 5 8-25 5 mg Health MG tablet 08:33: tablet 17 TAKE 1 TABLET BY MOUTH EVERYDAY AT BEDTIME aspirin 81 2020-0 Yes 81mg Chew 81 UT MG chewable 8-25 mg. Health tablet 08:33: 17 lisinopril- Yes lisinopril UT hydroCHLORO 8-25 10 Health thiazide 08:33: mg-hydroch 10-12.5 MG 17 lorothiazi tablet de 12.5 mg tablet TAKE 1 TABLET BY MOUTH TWICE A DAY Coenzyme Yes 1{tbl} Take 1 UT Q10 (CoQ10) 8-25 tablet by [facility] 100 MG 08:33: mouth. capsule 17 omega-3 Yes 1{tbl} Take 1 UT 1000 MG 8-25 tablet by Health capsule 08:33: mouth. 17 amLODIPine Yes amlodipine U T (Norvasc) 5 8-25 5 mg Health MG tablet 08:33: tablet 17 TAKE 1 TABLET BY MOUTH EVERYDAY AT BEDTIME aspirin 81 2020-0 Yes 81mg Chew 81 UT MG chewable 8-25 mg. Health tablet 08:33: 17 lisinopril- Yes lisinopril UT hydroCHLORO 8-25 10 Health thiazide 08:33: mg-hydroch 10-12.5 MG 17 lorothiazi tablet de 12.5 mg tablet TAKE 1 TABLET BY MOUTH TWICE A DAY Coenzyme Yes 1{tbl} Take 1 UT Q10 (CoQ10) 8-25 tablet by [facility] 100 MG 08:33: mouth. capsule 17 omega-3 Yes 1{tbl} Take 1 UT 1000 MG 8-25 tablet by Health capsule 08:33: mouth. 17 amLODIPine Yes amlodipine U T (Norvasc) 5 8-25 5 mg Health MG tablet 08:33: tablet 17 TAKE 1 TABLET BY MOUTH EVERYDAY AT BEDTIME aspirin 81 2020-0 Yes 81mg Chew 81 UT MG chewable 8-25 mg. Health tablet 08:33: 17 lisinopril- Yes lisinopril UT hydroCHLORO 8-25 10 Health thiazide 08:33: mg-hydroch 10-12.5 MG 17 lorothiazi tablet de 12.5 mg tablet TAKE 1 TABLET BY MOUTH TWICE A DAY Coenzyme Yes 1{tbl} Take 1 UT Q10 (CoQ10) 8-25 tablet by [facility] 100 MG 08:33: mouth. capsule 17 omega-3 Yes 1{tbl} Take 1 UT 1000 MG 8-25 tablet by Health capsule 08:33: mouth. 17 amLODIPine 0 Yes amlodipine U T (Norvasc) 5 8-25 5 mg Health MG tablet 08:33: tablet 17 TAKE 1 TABLET BY MOUTH EVERYDAY AT BEDTIME aspirin 81 202-0 Yes 81mg Chew 81 UT MG chewable 8-25 mg. Health tablet 08:33: 17 lisinopril- 0 Yes lisinopril UT hydroCHLORO 8-25 10 Health thiazide 08:33: mg-hydroch 10-12.5 MG 17 lorothiazi tablet de 12.5 mg tablet TAKE 1 TABLET BY MOUTH TWICE A DAY Coenzyme 0 Yes 1{tbl} Take 1 UT Q10 (CoQ10) 8-25 tablet by [facility] 100 MG 08:33: mouth. capsule 17 omega-3 Yes 1{tbl} Take 1 UT 1000 MG 8-25 tablet by [facility] capsule 08:33: mouth. 17 amLODIPine Yes amlodipine U T (Norvasc) 5 8-25 5 mg Health MG tablet 08:33: tablet 17 TAKE 1 TABLET BY MOUTH EVERYDAY AT BEDTIME aspirin 81 2020-0 Yes 81mg Chew 81 UT MG chewable 8-25 mg. Health tablet 08:33: 17 lisinopril- 0 Yes lisinopril UT hydroCHLORO 8-25 10 Health thiazide 08:33: mg-hydroch 10-12.5 MG 17 lorothiazi tablet de 12.5 mg tablet TAKE 1 TABLET BY MOUTH TWICE A DAY Coenzyme 0 Yes 1{tbl} Take 1 UT Q10 (CoQ10) 8-25 tablet by [facility] 100 MG 08:33: mouth. capsule 17 omega-3 Yes 1{tbl} Take 1 UT 1000 MG 8-25 tablet by Health capsule 08:33: mouth. 17 amLODIPine 0 Yes amlodipine U T (Norvasc) 5 8-25 5 mg Health MG tablet 08:33: tablet 17 TAKE 1 TABLET BY MOUTH EVERYDAY AT BEDTIME aspirin 81 2020-0 Yes 81mg Chew 81 UT MG chewable 8-25 mg. Health tablet 08:33: 17 lisinopril- 0 Yes lisinopril UT hydroCHLORO 8-25 10 Health thiazide 08:33: mg-hydroch 10-12.5 MG 17 lorothiazi tablet de 12.5 mg tablet TAKE 1 TABLET BY MOUTH TWICE A DAY Coenzyme Yes 1{tbl} Take 1 UT Q10 (CoQ10) 8-25 tablet by [facility] 100 MG 08:33: mouth. capsule 17 omega-3 Yes 1{tbl} Take 1 UT 1000 MG 8-25 tablet by Health capsule 08:33: mouth. 17 amLODIPine Yes amlodipine U T (Norvasc) 5 8-25 5 mg Health MG tablet 08:33: tablet 17 TAKE 1 TABLET BY MOUTH EVERYDAY AT BEDTIME aspirin 81 2020-0 Yes 81mg Chew 81 UT MG chewable 8-25 mg. Health tablet 08:33: 17 lisinopril- Yes lisinopril UT hydroCHLORO 8-25 10 Health thiazide 08:33: mg-hydroch 10-12.5 MG 17 lorothiazi tablet de 12.5 mg tablet TAKE 1 TABLET BY MOUTH TWICE A DAY Coenzyme Yes 1{tbl} Take 1 UT Q10 (CoQ10) 8-25 tablet by [facility] 100 MG 08:33: mouth. capsule 17 omega-3 Yes 1{tbl} Take 1 UT 1000 MG 8-25 tablet by Health capsule 08:33: mouth. 17 amLODIPine Yes amlodipine U T (Norvasc) 5 8-25 5 mg Health MG tablet 08:33: tablet 17 TAKE 1 TABLET BY MOUTH EVERYDAY AT BEDTIME aspirin 81 2020-0 Yes 81mg Chew 81 UT MG chewable 8-25 mg. Health tablet 08:33: 17 lisinopril- 0 Yes lisinopril UT hydroCHLORO 8-25 10 Health thiazide 08:33: mg-hydroch 10-12.5 MG 17 lorothiazi tablet de 12.5 mg tablet TAKE 1 TABLET BY MOUTH TWICE A DAY Coenzyme Yes 1{tbl} Take 1 UT Q10 (CoQ10) 8-25 tablet by [facility] 100 MG 08:33: mouth. capsule 17 omega-3 Yes 1{tbl} Take 1 UT 1000 MG 8-25 tablet by [facility] capsule 08:33: mouth. 17 amLODIPine Yes amlodipine U T (Norvasc) 5 8-25 5 mg Health MG tablet 08:33: tablet 17 TAKE 1 TABLET BY MOUTH EVERYDAY AT BEDTIME aspirin 81 2020-0 Yes 81mg Chew 81 UT MG chewable 8-25 mg. Health tablet 08:33: 17 lisinopril- 0 Yes lisinopril UT hydroCHLORO 8-25 10 Health thiazide 08:33: mg-hydroch 10-12.5 MG 17 lorothiazi tablet de 12.5 mg tablet TAKE 1 TABLET BY MOUTH TWICE A DAY Coenzyme Yes 1{tbl} Take 1 UT Q10 (CoQ10) 8-25 tablet by [facility] 100 MG 08:33: mouth. capsule 17 omega-3 Yes 1{tbl} Take 1 UT 1000 MG 8-25 tablet by Health capsule 08:33: mouth. 17 amLODIPine Yes amlodipine U T (Norvasc) 5 8-25 5 mg Health MG tablet 08:33: tablet 17 TAKE 1 TABLET BY MOUTH EVERYDAY AT BEDTIME aspirin 81 2020-0 Yes 81mg Chew 81 UT MG chewable 8-25 mg. Health tablet 08:33: 17 lisinopril- Yes lisinopril UT hydroCHLORO 8-25 10 Health thiazide 08:33: mg-hydroch 10-12.5 MG 17 lorothiazi tablet de 12.5 mg tablet TAKE 1 TABLET BY MOUTH TWICE A DAY Coenzyme Yes 1{tbl} Take 1 UT Q10 (CoQ10) 8-25 tablet by [facility] 100 MG 08:33: mouth. capsule 17 omega-3 Yes 1{tbl} Take 1 UT 1000 MG 8-25 tablet by Health capsule 08:33: mouth. 17 lisinopril- Yes 1{tbl} Q.5D Take 1 UT hydroCHLORO 8-04 tablet by [facility] thiazide 00:00: mouth 2 10-12.5 MG 00 (two) tablet times a day. lisinopril- 2020-0 Yes 1{tbl} Q.5D Take 1 UT hydroCHLORO 8-04 tablet by [facility] thiazide 00:00: mouth 2 10-12.5 MG 00 (two) tablet times a day. lisinopril- 2021-0 Yes 1{tbl} Q.5D Take 1 UT hydroCHLORO 8-04 tablet by [facility] thiazide 00:00: mouth 2 10-12.5 MG 00 (two) tablet times a day. lisinopril- 2021-0 Yes 1{tbl} Q.5D Take 1 UT hydroCHLORO 8-04 tablet by [facility] thiazide 00:00: mouth 2 10-12.5 MG 00 (two) tablet times a day. lisinopril- 2021-0 Yes 1{tbl} Q.5D Take 1 UT hydroCHLORO 8-04 tablet by [facility] thiazide 00:00: mouth 2 10-12.5 MG 00 (two) tablet times a day. lisinopril- 2021-0 Yes 1{tbl} Q.5D Take 1 UT hydroCHLORO 8-04 tablet by [facility] thiazide 00:00: mouth 2 10-12.5 MG 00 (two) tablet times a day. lisinopril- 2021-0 Yes 1{tbl} Q.5D Take 1 UT hydroCHLORO 8-04 tablet by [facility] thiazide 00:00: mouth 2 10-12.5 MG 00 (two) tablet times a day. lisinopril- 2021-0 Yes 1{tbl} Q.5D Take 1 UT hydroCHLORO 8-04 tablet by [facility] thiazide 00:00: mouth 2 10-12.5 MG 00 (two) tablet times a day. lisinopril- 2021-0 Yes 1{tbl} Q.5D Take 1 UT hydroCHLORO 8-04 tablet by [facility] thiazide 00:00: mouth 2 10-12.5 MG 00 (two) tablet times a day. lisinopril- 2021-0 Yes 1{tbl} Q.5D Take 1 UT hydroCHLORO 8-04 tablet by [facility] thiazide 00:00: mouth 2 10-12.5 MG 00 (two) tablet times a day. lisinopril- 2021-0 Yes 1{tbl} Q.5D Take 1 UT hydroCHLORO 8-04 tablet by [facility] thiazide 00:00: mouth 2 10-12.5 MG 00 (two) tablet times a day. lisinopril- 2021-0 Yes 1{tbl} Q.5D Take 1 UT hydroCHLORO 8-04 tablet by [facility] thiazide 00:00: mouth 2 10-12.5 MG 00 (two) tablet times a day. lisinopril- 2021-0 Yes 1{tbl} Q.5D Take 1 UT hydroCHLORO 8-04 tablet by [facility] thiazide 00:00: mouth 2 10-12.5 MG 00 (two) tablet times a day. lisinopril- 2021-0 Yes 1{tbl} Q.5D Take 1 UT hydroCHLORO 8-04 tablet by [facility] thiazide 00:00: mouth 2 10-12.5 MG 00 (two) tablet times a day. lisinopril- 2021-0 Yes 1{tbl} Q.5D Take 1 UT hydroCHLORO 8-04 tablet by [facility] thiazide 00:00: mouth 2 10-12.5 MG 00 (two) tablet times a day. lisinopril- 2021-0 Yes 1{tbl} Q.5D Take 1 UT hydroCHLORO 8-04 tablet by [facility] thiazide 00:00: mouth 2 10-12.5 MG 00 (two) tablet times a day. lisinopril- 2021-0 Yes 1{tbl} Q.5D Take 1 UT hydroCHLORO 8-04 tablet by [facility] thiazide 00:00: mouth 2 10-12.5 MG 00 (two) tablet times a day. lisinopril- 2021-0 Yes 1{tbl} Q.5D Take 1 UT hydroCHLORO 8-04 tablet by [facility] thiazide 00:00: mouth 2 10-12.5 MG 00 (two) tablet times a day. lisinopril- 2021-0 Yes 1{tbl} Q.5D Take 1 UT hydroCHLORO 8-04 tablet by [facility] thiazide 00:00: mouth 2 10-12.5 MG 00 (two) tablet times a day. lisinopril- 2021-0 Yes 1{tbl} Q.5D Take 1 UT hydroCHLORO 8-04 tablet by [facility] thiazide 00:00: mouth 2 10-12.5 MG 00 (two) tablet times a day. lisinopril- 2021-0 Yes 1{tbl} Q.5D Take 1 UT hydroCHLORO 8-04 tablet by [facility] thiazide 00:00: mouth 2 10-12.5 MG 00 (two) tablet times a day. ezetimibe 2021-0 Yes 10mg QD Take 10 mg UT (Zetia) 10 7-13 by mouth 1 [facility] MG tablet 00:00: (one) time 00 each day. ezetimibe 2021-0 Yes 10mg QD Take 10 mg UT (Zetia) 10 7-13 by mouth 1 [facility] MG tablet 00:00: (one) time 00 each day. ezetimibe 2021-0 Yes 10mg QD Take 10 mg UT (Zetia) 10 7-13 by mouth 1 [facility] MG tablet 00:00: (one) time 00 each day. ezetimibe 2021-0 Yes 10mg QD Take 10 mg UT (Zetia) 10 7-13 by mouth 1 [facility] MG tablet 00:00: (one) time 00 each day. ezetimibe 2021-0 Yes 10mg QD Take 10 mg UT (Zetia) 10 7-13 by mouth 1 [facility] MG tablet 00:00: (one) time 00 each day. ezetimibe 2021-0 Yes 10mg QD Take 10 mg UT (Zetia) 10 7-13 by mouth 1 [facility] MG tablet 00:00: (one) time 00 each day. ezetimibe 2021-0 Yes 10mg QD Take 10 mg UT (Zetia) 10 7-13 by mouth 1 [facility] MG tablet 00:00: (one) time 00 each day. ezetimibe 2021-0 Yes 10mg QD Take 10 mg UT (Zetia) 10 7-13 by mouth 1 [facility] MG tablet 00:00: (one) time 00 each day. ezetimibe 2021-0 Yes 10mg QD Take 10 mg UT (Zetia) 10 7-13 by mouth 1 [facility] MG tablet 00:00: (one) time 00 each day. ezetimibe 2021-0 Yes 10mg QD Take 10 mg UT (Zetia) 10 7-13 by mouth 1 [facility] MG tablet 00:00: (one) time 00 each day. ezetimibe 2021-0 Yes 10mg QD Take 10 mg UT (Zetia) 10 7-13 by mouth 1 [facility] MG tablet 00:00: (one) time 00 each day. ezetimibe 2021-0 Yes 10mg QD Take 10 mg UT (Zetia) 10 7-13 by mouth 1 [facility] MG tablet 00:00: (one) time 00 each day. ezetimibe 2021-0 Yes 10mg QD Take 10 mg UT (Zetia) 10 7-13 by mouth 1 [facility] MG tablet 00:00: (one) time 00 each day. ezetimibe 2021-0 Yes 10mg QD Take 10 mg UT (Zetia) 10 7-13 by mouth 1 [facility] MG tablet 00:00: (one) time 00 each day. ezetimibe 2021-0 Yes 10mg QD Take 10 mg UT (Zetia) 10 7-13 by mouth 1 [facility] MG tablet 00:00: (one) time 00 each day. ezetimibe 2021-0 Yes 10mg QD Take 10 mg UT (Zetia) 10 7-13 by mouth 1 [facility] MG tablet 00:00: (one) time 00 each day. ezetimibe 2021-0 Yes 10mg QD Take 10 mg UT (Zetia) 10 7-13 by mouth 1 [facility] MG tablet 00:00: (one) time 00 each day. ezetimibe 2021-0 Yes 10mg QD Take 10 mg UT (Zetia) 10 7-13 by mouth 1 [facility] MG tablet 00:00: (one) time 00 each day. ezetimibe 2021-0 Yes 10mg QD Take 10 mg UT (Zetia) 10 7-13 by mouth 1 [facility] MG tablet 00:00: (one) time 00 each day. ezetimibe 2021-0 Yes 10mg QD Take 10 mg UT (Zetia) 10 7-13 by mouth 1 [facility] MG tablet 00:00: (one) time 00 each day. ezetimibe 2021-0 Yes 10mg QD Take 10 mg UT (Zetia) 10 7-13 by mouth 1 [facility] MG tablet 00:00: (one) time 00 each day. amLODIPine 2021-0 Yes 5mg Take 5 mg UT (Norvasc) 5 7-12 by mouth Heal th MG tablet 00:00: every 00 night. amLODIPine 2021-0 Yes 5mg Take 5 mg UT (Norvasc) 5 7-12 by mouth Heal th MG tablet 00:00: every 00 night. amLODIPine 2021-0 Yes 5mg Take 5 mg UT (Norvasc) 5 7-12 by mouth Heal th MG tablet 00:00: every 00 night. amLODIPine 2021-0 Yes 5mg Take 5 mg UT (Norvasc) 5 7-12 by mouth Heal th MG tablet 00:00: every 00 night. amLODIPine 2021-0 Yes 5mg Take 5 mg UT (Norvasc) 5 7-12 by mouth Heal th MG tablet 00:00: every 00 night. amLODIPine 2021-0 Yes 5mg Take 5 mg UT (Norvasc) 5 7-12 by mouth Heal th MG tablet 00:00: every 00 night. amLODIPine 2021-0 Yes 5mg Take 5 mg UT (Norvasc) 5 7-12 by mouth Heal th MG tablet 00:00: every 00 night. amLODIPine 2021-0 Yes 5mg Take 5 mg UT (Norvasc) 5 7-12 by mouth Heal th MG tablet 00:00: every 00 night. amLODIPine 2021-0 Yes 5mg Take 5 mg UT (Norvasc) 5 7-12 by mouth Heal th MG tablet 00:00: every 00 night. amLODIPine 2021-0 Yes 5mg Take 5 mg UT (Norvasc) 5 7-12 by mouth Heal th MG tablet 00:00: every 00 night. amLODIPine 2021-0 Yes 5mg Take 5 mg UT (Norvasc) 5 7-12 by mouth Heal th MG tablet 00:00: every 00 night. amLODIPine 2021-0 Yes 5mg Take 5 mg UT (Norvasc) 5 7-12 by mouth Heal th MG tablet 00:00: every 00 night. amLODIPine 2021-0 Yes 5mg Take 5 mg UT (Norvasc) 5 7-12 by mouth Heal th MG tablet 00:00: every 00 night. amLODIPine 2021-0 Yes 5mg Take 5 mg UT (Norvasc) 5 7-12 by mouth Heal th MG tablet 00:00: every 00 night. amLODIPine 2021-0 Yes 5mg Take 5 mg UT (Norvasc) 5 7-12 by mouth Heal th MG tablet 00:00: every 00 night. amLODIPine 2021-0 Yes 5mg Take 5 mg UT (Norvasc) 5 7-12 by mouth Heal th MG tablet 00:00: every 00 night. amLODIPine 2021-0 Yes 5mg Take 5 mg UT (Norvasc) 5 7-12 by mouth Heal th MG tablet 00:00: every 00 night. amLODIPine 2021-0 Yes 5mg Take 5 mg UT (Norvasc) 5 7-12 by mouth Heal th MG tablet 00:00: every 00 night. amLODIPine 2021-0 Yes 5mg Take 5 mg UT (Norvasc) 5 7-12 by mouth Heal th MG tablet 00:00: every 00 night. amLODIPine 2021-0 Yes 5mg Take 5 mg UT (Norvasc) 5 7-12 by mouth Heal th MG tablet 00:00: every 00 night. amLODIPine 2021-0 Yes 5mg Take 5 mg UT (Norvasc) 5 7-12 by mouth Heal th MG tablet 00:00: every 00 night. lisinopril- 2018-07 Yes 1{tbl} Take 1 Un mir hydrochloro 2-06 tablet by ity of thiazide 16:59: mouth [place] (PRINZIDE,Z 09 daily. Medica l ESTORETIC) Branch 10-12.5 mg per tablet aspirin 81 2018-07 Yes 81mg Take 81 mg U nivers mg chewable 2-06 by mouth ity of tablet 16:59: daily. [place] 09 Medical Branch multivitami 2018-07 Yes 1{tbl} Take 1 Un mir n, 2-06 tablet by ity of [place]-minerals 16:59: mouth [place] (COMPLETE 09 daily. Medical MULTIVITAMI Branch N) tablet COQ10, 2018-07 Yes 1{tbl} Take 1 Univers UBIQUINOL, 2-06 tablet by ity of ORAL 16:59: mouth [place] 09 daily. Medical Branch omega-3 2018-07 Yes 1{tbl} Take 1 Univer s fatty 2-06 tablet by ity of acids/fish 16:59: mouth [place] oil (FISH 09 daily. Medical OIL EXTRA Branch STRENGTH ORAL) lisinopril- 2018-07 Yes 1{tbl} Take 1 Un mir hydrochloro 2-06 tablet by ity of thiazide 16:59: mouth [place] (PRINZIDE,Z 09 daily. Medica l ESTORETIC) Branch 10-12.5 mg per tablet aspirin 2018-07 Yes 81mg Take 81 mg U nivers mg chewable 2-06 by mouth ity of tablet 16:59: daily. Medical Branch multivitami 2018-07 Yes 1{tbl} Take 1 Un mir n, 2-06 tablet by ity of [place]-minerals 16:59: mouth [place] (COMPLETE 09 daily. Medical MULTIVITAMI Branch N) tablet COQ10, 2018-07 Yes 1{tbl} Take 1 Univers UBIQUINOL, 2-06 tablet by ity of ORAL 16:59: mouth [place] 09 daily. Medical Branch omega-3 2018-07 Yes 1{tbl} Take 1 Univer s fatty 2-06 tablet by ity of acids/fish 16:59: mouth [place] oil (FISH 09 daily. Medical OIL EXTRA Branch STRENGTH ORAL) lisinopril- 2018-07 Yes 1{tbl} Take 1 Un mir hydrochloro 2-06 tablet by ity of thiazide 16:59: mouth [place] (PRINZIDE,Z 09 daily. Medica l ESTORETIC) Branch 10-12.5 mg per tablet aspirin 2018-07 Yes 81mg Take 81 mg U nivers mg chewable 2-06 by mouth ity of tablet 16:59: daily. Medical Branch multivitami 2018-07 Yes 1{tbl} Take 1 Un mir n, 2-06 tablet by ity of [place]-minerals 16:59: mouth [place] (COMPLETE 09 daily. Medical MULTIVITAMI Branch N) tablet COQ10, 2018-07 Yes 1{tbl} Take 1 Univers UBIQUINOL, 2-06 tablet by ity of ORAL 16:59: mouth [place] 09 daily. Medical Branch omega-3 2018-07 Yes 1{tbl} Take 1 Univer s fatty 2-06 tablet by ity of acids/fish 16:59: mouth [place] oil (FISH 09 daily. Medical OIL EXTRA Branch STRENGTH ORAL) lisinopril- 2018-07 Yes 1{tbl} Take 1 Un mir hydrochloro 2-06 tablet by ity of thiazide 16:59: mouth [place] (PRINZIDE,Z 09 daily. Medica l ESTORETIC) Branch 10-12.5 mg per tablet aspirin 81 2018-07 Yes 81mg Take 81 mg U nivers mg chewable 2-06 by mouth ity of tablet 16:59: daily. [place] [facility] multivitami 2018-07 Yes 1{tbl} Take 1 Un mir n, 2-06 tablet by ity of [place]-minerals 16:59: mouth [place] (COMPLETE 09 daily. Medical MULTIVITAMI Branch N) tablet COQ10, 2018-07 Yes 1{tbl} Take 1 Univers UBIQUINOL, 2-06 tablet by ity of ORAL 16:59: mouth [place] 09 daily. Medical Branch omega-3 2018-07 Yes 1{tbl} Take 1 Univer s fatty 2-06 tablet by ity of acids/fish 16:59: mouth [place] oil (FISH 09 daily. Medical OIL EXTRA Branch STRENGTH ORAL) Immunizations Ordered Filled Immunization Date Status Comments [facility] e Immunization Name Name Td 2017-12-09 Completed [facility] 00:00:00 [facility] 2017-12-09 Completed [facility] 00:00:00 [facility] 2017-12-09 Completed [facility] 00:00:00 [facility] Td 2017-12-09 Completed [facility] 00:00:00 [facility] Vital Signs Vital Name Observation Time Observation Value Comments Source Body height 2021-09-10 16:17:00 160 [facility] weight 2021-09-10 16:17:00 90[facility]266 [facility] BMI 2021-09-10 16:17:00 35.25 kg/m2 [facility] Body height 2021-06-11 16:20:00 160 [facility] Body weight 2021-06-11 16:20:00 90.266 [facility] BMI 2021-06-11 16:20:00 35.25 kg/m2 [facility] Body height 2021-04-30 13:51:00 160 [facility] Body weight 2021-04-30 13:51:00 90.266 [facility] BMI 2021-04-30 13:51:00 35.25 kg/m2 [facility] Body height 2021-04-09 14:39:00 160 [facility] Body weight 2021-04-09 14:39:00 90.266 [facility] BMI 2021-04-09 14:39:00 35.25 kg/m2 [facility] Body height 2021-03-13 14:47:00 167.6 cm [facility] Body weight 2021-03-13 14:47:00 91.173 [facility] BMI 2021-03-13 14:47:00 32.44 kg/m2 [facility] Body height 2021-03-16 19:47:24 165.1 cm [facility] Body weight 2021-03-16 19:47:24 90.273 [facility] BMI 2021-03-16 19:47:24 33.12 kg/m2 [facility] Body height 2021-02-25 13:27:00 167.6 cm [facility] Body weight 2021-02-25 13:27:00 91.445 [facility] 2021-02-25 13:27:00 32.54 kg/[facility]2 [facility] Procedure Date / Time Performing Clinician Source Performed MS ARTHROCENTESIS 2021-09-10 16:52:13 [facility] ASPIR&/INJ MAJOR JT/BURSA W/O US MS ARTHROCENTESIS 2021-04-30 14:38:38 [facility] ASPIR&/INJ MAJOR JT/BURSA W/O US FL GUIDED INJECTION 2021-04-24 17:00:36 [facility] SH[facility]ER LEFT MRI SHOULDER LEFT W IV 2021-04-24 16:30:00 Oliverio [facility]ños [facility] CONTRAST XR PELVIS 1-2 VIEWS 2021-03-18 15:12:00 [facility] XR HIP 2 OR 3 VW LEFT 2021-02-25 14:13:00 [facility] XR KNEE 3 VW LEFT 2020-09-29 15:09:57 Requisition, Paper Univers [facility] XR HIPS 2 VW LEFT 2020-07-30 15:17:32 [facility] ASSIGNMENT OF BENEFITS 2020-07-30 14:43:12 Doctor Unassigned, No [facility] Branch Encounters Start End Encounter Admission Attending Care Care Encounter Source Date/Time Date/Time Type Type Clinicians Facility Department ID 2021-09-10 Outpatient GONZALEZ BOLAÑOS [facility] [id number] [place] [facility]10 [facility] [id number] [place] 10:22:00 Health 2021-04-29 Outpatient [facility] [id number] [place] 10:24:40 Health 2021-03-13 Outpatient MIKY, [facility] [id number] [facility] 15:29[facility] 2021-02-25 Outpatient [facility] [id number] [place] 09:06:48 Health 2021-02-10 Outpatient MIKY, [facility] [id number] [place] 09:45[facility] 2021-09-10 2021-09-10 Office Miky [facility] 1.2.840.114 [id number] [place] 10:15:00 11:04:05 Visit Oliverio CHRISTENSEN [id number] H [facility] MEDICAL [id number] PLAZA 0 [id number] 2021-07-01 2021-07-01 Emergency X HENLEY, [facility] ERT [id number] [facility] 15:46:00 16:06:00 GELACIO owusu [facility] 2021-06-11 2021-06-11 Office Miky [facility] 1.2.840.114 [id number] [place] 09:45:00 10:55:41 Visit Oliverio CHRISTENSEN [id number] H [facility] MEDICAL [id number] PLAZA 6 [id number] 2021-04-30 2021-04-30 Office Miky [facility] 1.2.840.114 [id number] [place] 08:45:43 09:57:26 Visit Oliverio CHRISTENSEN [id number] H ealt MEDICAL [id number] PLAZA 3 [id number] 2021-04-30 2021-04-30 Refill Sanna Allison [facility] 1.2.840.11 [id number] [place] 00:00:00 00:00:00 Sanna Allison [id number] Health MEDICAL [id number] PLAZA 8 [id number] 2021-04-24 2021-04-24 EXT [facility] OP Bolaños, EXT MSRDP 1.2.840.114 1 [id number] [place] 00:00:00 00:00:00 Oliverio LOCATION [id number] H ealth [id number] [id number] 2021-04-17 2021-04-17 EXT MH OP Bolaños, EXT MSRDP 1.2.840.114 1 [id number] [place] 00:00:00 00:00:00 Oliverio LOCATION [id number] H ealth [id number] [id number] 2021-04-09 2021-04-09 Office Miky [facility] 1.2.840.114 [id number] [place] 09:37:18 10:32:44 Visit Oliverio CROCKETT [id number] H ealt MEDICAL 9.2.7.2.686 PLAZA 0 [id number] 2021-04-03 2021-04-03 Refill Miky [facility] 1.2.840.114 [id number] [place] 00:00:00 00:00:00 Oliverio CROCKETT [id number] H ealt MEDICAL 9.2.7.2.686 PLAZA 0 [id number] 2021-03-21 2021-03-21 Emergency E FADOWOLE, [facility]BL BL [id number] MHBL 07:10:00 11:18:00 ALEJA 2021-03-18 2021-03-18 Outpatient MIKY [facility] [id number] 05:50:00 18:03:00 [facility] 2021-03-18 2021-03-18 EXT [facility] OP Bolaños, EXT MSRDP 1.2.840.114 1 [id number] [place] 08:05:03 10:05:03 Oliverio LOCATION [id number] H ealth 9.2.7.2.686 [id number] 2021-03-18 2021-03-18 EXT [facility] System, EXT MSRDP 1.2.840.114 1 [id number] [place] 00:00:00 00:00:00 Provider LOCATION [id number] Health Not In 9.2.7.2.686 [id number] 2021-03-13 2021-03-13 Office Miky [facility] 1.2.840.114 [id number] [place] 09:26:26 10:49:15 Visit Oliverio CROCKETT [id number] [facility] MEDICAL 9.2.7.2.686 PLAZA 2 [id number] 2021-03-13 2021-03-13 EXT [facility] OP Miky, EXT MSRDP 1.2.840.114 1 [id number] [place] 00:00:00 00:00:00 Oliverio LOCATION [id number] H ealt [id number] [id number] 2021-03-12 2021-03-12 EXT [facility] Miky, EXT MSRDP 1.2.840.114 1 [id number] [place] 00:00:00 00:00:00 Oliverio LOCATION [id number] H ealt 9.2.7.2.686 [id number] 2021-03-12 2021-03-12 Refill Sanna Allison [facility] 1.2.840.11 [id number] [place] 00:00:00 00:00:00 Sanna Allison [id number] Health MEDICAL [id number] PLAZA 3 [id number] 2021-03-05 2021-03-05 EXT [facility] Miky, EXT MSRDP 1.2.840.114 1 [id number] [place] 00:00:00 00:00:00 Oliverio LOCATION [id number] H ealth 9.2.7.2.686 [id number] 2021-03-03 2021-03-03 Orders Sanna Allison [facility] 1.2.840.11 [id number] [place] 00:00:00 00:00:00 Only Sanna Allison [id number] Health MEDICAL 9.2.7.2.686 PLAZA 4 [id number] 2021-02-26 2021-02-26 Outpatient MARCELA BOLAÑOS [facility] [id number] 07:15:00 23:59:00 [facility] 2021-02-25 2021-02-25 Office ELVIN Bolaños [facility] 1.2.840.114 [id number] [place] 08:18:09 10:00:15 [facility] [id number] H [facility] 9.2.7.2.686 PLAZA 0 [id number] 2021-01-02 2021-01-02 Outpatient Goldfarb_R [facility] [id number] [place] 01:55:00 01:55:00 [id number] [facility] 2020-12-15 2020-12-15 Outpatient Goldfarb_R [facility] [id number] [place] 12:40:00 12:40:00 [id number] [facility] 2020-12-15 2020-12-15 Outpatient Porfirio, [facility]U [id number] 00:00:00 00:00:00 Zuhair [id number] 2020-11-17 2020-11-17 Outpatient Goldfarb_R [facility] [id number] [place] 02:56:00 02:56:00 [id number] [facility] 2020-09-29 2020-09-29 Hospital Radiology [facility] 1.2.840.114 [id number] Univers 09:30:00 23:59:00 Encounter Berkey 350.1.13.10 [facility] 4.2.7.2.[address] [facility] [id number] [facility] 807 Branch 2020-09-29 2020-09-29 Outpatient [facility] [id number] Univers 09:30:00 09:30:00 [id number] ity [facility] 2020-09-29 2020-09-29 Outpatient R [facility] [id number] Univers 00:00:00 [facility] 2020-08-31 2020-08-31 Laboratory Lab, Adc Fam Pob I [facility] 1.2. 840.114 [id number] Univers 09:55:21 10:15:21 Only Vaishali Cisse [facility] [id number] ity of [place] 4.2.7.2.686 [place] [facility] [id number] [facility] Branch Office [facility] 2020-08-31 2020-08-31 Outpatient [facility] [id number] Univers 10:00:00 10:00:00 [id number] ity [facility] 2020-08-31 2020-08-31 [facility] [id number] Univers 10:00:00 10:00:00 VAISHALI ity o f [facility] 2020-07-30 2020-07-30 [facility] Radiology [facility] 1.2.840.114 [id number] Univers 08:30:00 23:59:00 Encounter [place] [id number] ity [place] [id number] [facility] 807 Branch 2020-07-30 2020-07-30 Outpatient R [facility] [id number] Univers 08:30:00 08:30:00 [id number] ity [facility] 2020-07-30 2020-07-30 Outpatient R [facility] [id number] Univers 00:00:00 00:00:00 ity of [facility] 2020-07-30 2020-07-30 Orders Doctor SCHUMACHER 1.2.840.114 [id number] Univers 00:00:00 00:00:00 Only Unassigned, USMAN 350.1.13.10 ity of [place] [facility] 4.2.7.2.686 [place] [id number] [facility] 009 Branch 2020-04-08 2020-04-08 Outpatient DAX MENDOZA [id number] [place] 07:17:00 12:48:00 GREGORY Results Test Description Test Time Test Comments Results Result Sour e Comments CULTURE, SPECIMEN NUMBER: ANAEROBIC 5 [id number] CULTURE, 10:00:36 ANAEROBIC SPECIMEN NUMBER: [id number] SPECIMEN COMMENT: R POINTER FINGER SOURCE: FINGER REPORT STATUS: FINAL DIRECT GRAM STAIN: RARE WBC'S SEEN NO BACTERIA SEEN FINAL REPORT: 07/08/2021 NO ANAEROBES RECOVERED AFTER 5 DAYS PRELIMINARY REPORT #2: 07/07/2021 NO ANAEROBES ISOLATED AT 4 DAYS PRELIMINARY ANAEROBE REPORT: 07/05/2021 NO ANAEROBES RECOVERED AFTER 48 HOURS UNLESS OTHERWISE INDICATED, ALL TESTING PERFORMED [facility] [address] [place] [id number] SURGICAL AIDES TEACHER: KENISHA GAMEZ M.D. [place] NUMBER [id number] [facility] [place]. [id number] XR hip left 2 or 2021-02-02 Left hip series 2 U [place] 3 views 5 views: Decreased 14:36:37 joint space of the left hip joint, subchondral sclerosis, periarticular osteophytes, left hip osteoarthritis XR KNEE 3 VW 2020-09-02 No appreciable Universi ty of LEFT 9 fracture lines. RL: [facility] 18:40:23 6200 Electronically Branc h signed by Reagan Morse MD at 09/29/2020 1:40 PM CLINICAL HISTORY:Pain. COMPARISON:none TECHNIQUE:XR KNEE 3 VW LEFT performed. Technical Quality: Adequate FINDINGS:There are no appreciable fracture lines or subluxations. ?There is grossanatomic alignment. ?No appreciable joint effusion. Moderate medial compartment joint space neck, with osteophyte. Grossanatomic alignment. [facility], Radiant Results Inft User - 09/29/2020 1:41 PM CDTCLINICAL HISTORY:Pain.COMPARIS ON:noneTECHNIQUE:XR KNEE 3 VW LEFT performed. Technical Quality: AdequateFINDINGS:Ther e are no appreciable fracture lines or subluxations. There is grossanatomic alignment. No appreciable joint effusion.Moderate medial compartment joint space neck, with osteophyte. Grossanatomic alignment.IMPRESSIONN o appreciable fracture lines.RL: 6200 HIPS 2 VW 2020-07-05 HISTORY: University o f LEFT 7 Osteoarthritis. [facility] ica 15:21:25 FINDINGS: AP and Branch lateral views of left hip showed no acute fracture ordislocation. Mild degenerative arthritis is noted in the formal slightlynarrowed joint space, mild subchondral sclerosis and osteophytes along thearticular edges of the superolateral acetabulum and head of the femur. Nosigns of AVN in the femoral head or aggressive bone lesions seen. Incidental note made of titanium anchors over the left pubic symphysiswhich may been utilized for inguinal hernia repair. 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 [facility], Radiant Results Inft User - 07/30/2020 9:22 AM CSTHISTORY: Osteoarthritis.FINDIN GS: AP and lateral views of left hip showed no acute fracture ordislocation. Mild degenerative arthritis is noted in the formal slightlynarrowed joint space, mild subchondral sclerosis and osteophytes along thearticular edges of the superolateral acetabulum and head of the femur. 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
[2021-09-27 09:39] LABS: Absolute Lymphocytes (CBC) 1.5 K/uL (0.7-4.9); Hematocrit 41.9 % (39.6-49.0); Lymphocytes % 25.8 % (15.3-44.8); MPV 8.2 fL (7.6-11.3); RBC Red Blood Cell Count 4.73 M/uL (4.33-5.43)
[2021-09-27] MEDS ORDERED: KETOROLAC 30 MG/ML INJ ONE (09:40)
[2021-09-27] MEDS ORDERED: DOXYCYCLINE 100 MG CAP PO ONE (09:41)
--- NOTE | 2021-09-27 09:44 | RAD REPORT ---
EXAM DESCRIPTION: RAD - Lumbar Spine 3 Views - 09/27/2021 9:32 am CLINICAL HISTORY: PAIN COMPARISON: No comparisons FINDINGS: No acute fracture. No malalignment. Grade 1 anteriolisthesis of L4 on L5. Left hip arthrop lasty. Disc height loss at L5-S1. Mild diffuse disc height loss. IMPRESSION: No acute osseous abnormality involving the lumbar spine.
[2021-09-27 09:49] LABS: Bilirubin Total 0.4 mg/dL (0.2-1.0); Potassium 3.8 mmol/L (3.5-5.1); Protein, Total 7.5 g/dL (6.4-8.2)
--- NOTE | 2021-09-27 09:50 | RAD REPORT ---
EXAM DESCRIPTION: RAD - Tib Fib Right - 09/27/2021 9:38 am CLINICAL HISTORY: PAIN COMPARISON: No comparisons FINDINGS: No acute fracture. No malalignment. Patellofemoral compartment spurring. IMPRESSION: No acute osseous abnormality involving the tibia or fibula.
--- NOTE | 2021-09-27 10:01 | ER ---
Nurse's Notes [facility] Name: Dwight Haddad Age: 76 yrs Sex: Male : 1945 Arrival Date: 09/27/2021 Time: 08:48 Bed 6 Private MD: Nuno Thompson R Diagnosis: Laceration without foreign body, right lower leg;Low back pain;Sciatica, right side Presentation: 09/27 09:01 Chief complaint: Patient states: scraped his right parra on a boat ladder a couple weeks iw ago, has had pain to the leg since then, radiates up to right hip/low back area. Coronavirus screen: At this time, the client does not indicate any symptoms associated with coronavirus-19. Ebola Screen: Patient negative for fever greater than or equal to 101.5 degrees Fahrenheit, and additional compatible Ebola Virus Disease symptoms Patient denies exposure to infectious person. Patient denies travel to an Ebola-affected area in the 21 days before illness onset. No symptoms or risks identified at this time. Initial Sepsis Screen: Does the patient meet any 2 criteria? No. Patient's initial sepsis screen is negative. Does the patient have a suspected source of infection? No. Patient's initial sepsis screen is negative. Risk Assessment: Do you want to hurt yourself or someone else? Patient reports no desire to harm self or others. Onset of symptoms was September 13, 2021. 09:01 Method Of Arrival: Ambulatory iw 09:01 Acuity: KRISTIN 3 iw Historical: - Allergies: 09:04 No Known Allergies; iw - Home Meds: 09:04 lisinopril-hydrochlorothiazide 10-12.5 mg oral tab 1 tab once daily [Active]; iw amlodipine 5 mg tab 1 tab once daily [Active]; ezetimibe 10 mg oral tab 1 tab once daily [Active]; aspirin 81 mg Oral tab daily [Active]; - PMHx: 09:07 Hypertensive disorder; iw - PSHx: 09:04 left hip; iw - Immunization history:: Client reports receiving the 2nd dose of the Covid vaccine. - Social history:: Smoking status: Patient denies any tobacco usage or history of. - Family history:: not pertinent. Screenin:35 Abuse screen: Denies threats or abuse. Denies injuries from another. Nutritional ph screening: No deficits noted. Tuberculosis screening: No symptoms or risk factors identified. Fall Risk None identified. Assessment: 09:16 General: Appears in no apparent distress. comfortable, well groomed, Behavior is calm, ph cooperative, appropriate for age, Denies fever, feeling ill. Pain: Complains of pain in lateral aspect of right calf Pain radiates to right hip, lateral aspect of right thigh and lateral aspect of right knee. Neuro: Level of Consciousness is awake, alert, obeys commands, Oriented to person, place, time, situation. Cardiovascular: Capillary refill < 3 seconds in bilateral fingers Patient's skin is warm and dry. Respiratory: Airway is patent Respiratory effort is even, unlabored. Derm: Skin is healthy with good turgor, Skin is pink, warm \T\ dry. Wound noted right parra. Musculoskeletal: Circulation, motion, and sensation intact. Range of motion: intact in all extremities. Injury Description: Laceration sustained to right parra is clean, superficial, 0.5 to 2.5 cm long, not bleeding. 10:33 Reassessment: Patient appears in no apparent distress at this time. Patient and/or ph family updated on plan of care and expected duration. Pain level reassessed. Patient is alert, oriented x 3, equal unlabored respirations, skin warm/dry/pink. Vital Signs: 09:01 BP 166 / 68; Pulse 69; Resp 16; Temp 97.8; Pulse Ox 100% on R/A; Weight 90.72 kg; iw Height 5 ft. 6 in. (167.64 cm); Pain 6/10; 10:33 BP 132 / 71; Pulse 67; Resp 18; Temp 97.5; Pulse Ox 100% on R/A; ph 09:01 Body Mass Index 32.28 (90.72 kg, 167.64 cm) iw ED Course: 08:48 Patient arrived in ED. mr 08:48 Nuno Thompson MD is Private Physician. mr 08:55 Obie Contreras MD is Attending Physician. kristin 08:55 Roxann Robert RN is Primary Nurse. ph 09:01 Patient has correct armband on for positive identification. Bed in low position. Call mb7 light in reach. Side rails up X 1. Door closed. Noise minimized. Warm blanket given. 09:04 Triage completed. iw 09:27 Inserted saline lock: 20 gauge in right antecubital area, using aseptic technique. mb7 09:33 Tib Fib Right XRAY In Process Unspecified. EDMS 09:33 Lumbar Spine (3 Views) XRAY In Process Unspecified. EDMS 09:35 Arm band placed on Patient placed in an exam room, on a stretcher. ph 09:40 Sed Rate Sent. mb7 10:00 Nuno Thompson MD is Referral Physician. kristin 10:20 US Extremity Venous Unilateral Ltd In Process Unspecified. EDMS 10:34 No provider procedures requiring assistance completed. IV discontinued, intact, ph bleeding controlled, No redness/swelling at site. Pressure dressing applied. Administered Medications: 09:42 Drug: Doxycycline 100 mg Route: PO; ph 10:34 Follow up: Response: No adverse reaction ph 09:42 Drug: Ketorolac 15 mg Route: IVP; Site: right antecubital; ph 10:35 Follow up: Response: No adverse reaction ph 10:35 Follow up: Response: Pain is decreased ph Outcome: 10:00 Discharge ordered by . kristin 10:34 Discharged to home ambulatory. ph 10:34 Condition: good 10:34 Discharge instructions given to patient, Instructed on discharge instructions, follow up and referral plans. medication usage, Demonstrated understanding of instructions, follow-up care, medications. 10:35 Patient left the ED. ph Signatures: Dispatcher [employer] Obie Tapia MD MD cha Rivera, Mary mr Williams, Irene, RN RN Roxann Robert RN RN ph Breneman, [facility]
--- NOTE | 2021-09-27 10:01 | EDPHYS ---
Physician Documentation [facility] Name: Dwight Haddad Age: 76 yrs Sex: Male : 1945 Arrival Date: 09/27/2021 Time: 08:48 Bed 6 Private MD: Nuno Thompson R ED Physician Obie Contreras HPI: 09/27 09:16 This 76 yrs old Male presents to ER via Ambulatory with complaints of Leg kristin Pain. 09:16 The patient presents with decreased range of motion, pain, that is acute. The kristin complaints affect the right parra. Context: The problem was sustained outdoors, resulted from right parra laceration. Onset: The symptoms/episode began/occurred 5 day(s) ago. Modifying factors: The symptoms are alleviated by elevating leg, remaining still, the symptoms are aggravated by movement. Associated signs and symptoms: The patient has no apparent associated signs or symptoms. Treatment prior to arrival includes: no previous treatment. Severity of symptoms: At their worst the symptoms were moderate, in the emergency department the symptoms are unchanged. The patient has not experienced similar symptoms in the past. Historical: - Allergies: 09:04 No Known Allergies; iw - Home Meds: 09:04 lisinopril-hydrochlorothiazide 10-12.5 mg oral tab 1 tab once daily [Active]; iw amlodipine 5 mg tab 1 tab once daily [Active]; ezetimibe 10 mg oral tab 1 tab once daily [Active]; aspirin 81 mg Oral tab daily [Active]; - PMHx: 09:07 Hypertensive disorder; iw - PSHx: 09:04 left hip; iw - Immunization history:: Client reports receiving the 2nd dose of the Covid vaccine. - Social history:: Smoking status: Patient denies any tobacco usage or history of. - Family history:: not pertinent. ROS: 09:16 Constitutional: Negative for fever, chills, and weight loss, Eyes: Negative for injury, kristin pain, redness, and discharge, ENT: Negative for injury, pain, and discharge, Neck: Negative for injury, pain, and swelling, Cardiovascular: Negative for chest pain, palpitations, and edema, Respiratory: Negative for shortness of breath, cough, wheezing, and pleuritic chest pain, Abdomen/GI: Negative for abdominal pain, nausea, vomiting, diarrhea, and constipation, : Negative for injury, bleeding, discharge, and swelling, Skin: Negative for injury, rash, and discoloration, Neuro: Negative for headache, weakness, numbness, tingling, and seizure, Psych: Negative for depression, anxiety, suicide ideation, homicidal ideation, and hallucinations, Allergy/Immunology: Negative for hives, rash, and allergies, Endocrine: Negative for neck swelling, polydipsia, polyuria, polyphagia, and marked weight changes, Hematologic/Lymphatic: Negative for swollen nodes, abnormal bleeding, and unusual bruising. 09:16 Back: Positive for pain at rest, radiated pain. 09:16 MS/extremity: Positive for laceration, of the right parra. Exam: 09:16 Constitutional: This is a well developed, well nourished patient who is awake, alert, kristin and in no acute distress. Head/Face: Normocephalic, atraumatic. Eyes: Pupils equal round and reactive to light, extra-ocular motions intact. Lids and lashes normal. Conjunctiva and sclera are non-icteric and not injected. Cornea within normal limits. Periorbital areas with no swelling, redness, or edema. ENT: Nares patent. No nasal discharge, no septal abnormalities noted. Tympanic membranes are normal and external auditory canals are clear. Oropharynx with no redness, swelling, or masses, exudates, or evidence of obstruction, uvula midline. Mucous membranes moist. Neck: Trachea midline, no thyromegaly or masses palpated, and no cervical lymphadenopathy. Supple, full range of motion without nuchal rigidity, or vertebral point tenderness. No Meningismus. Chest/axilla: Normal chest wall appearance and motion. Nontender with no deformity. No lesions are appreciated. Cardiovascular: Regular rate and rhythm with a normal S1 and S2. No gallops, murmurs, or rubs. Normal PMI, no JVD. No pulse deficits. Respiratory: Lungs have equal breath sounds bilaterally, clear to auscultation and percussion. No rales, rhonchi or wheezes noted. No increased work of breathing, no retractions or nasal flaring. Abdomen/GI: Soft, non-tender, with normal bowel sounds. No distension or tympany. No guarding or rebound. No evidence of tenderness throughout. Back: No spinal tenderness. No costovertebral tenderness. Full range of motion. Skin: Warm, dry with normal turgor. Normal color with no rashes, no lesions, and no evidence of cellulitis. Neuro: Awake and alert, GCS 15, oriented to person, place, time, and situation. Cranial nerves II-XII grossly intact. Motor strength 5/5 in all extremities. Sensory grossly intact. Cerebellar exam normal. Normal gait. Psych: Awake, alert, with orientation to person, place and time. Behavior, mood, and affect are within normal limits. 09:16 Musculoskeletal/extremity: ROM: full active range of motion, full passive range of motion, Circulation is intact in all extremities. Sensation intact. Compartment Syndrome exam of affected extremity: is normal. DVT Exam: no swelling, negative Homans' sign noted on exam, no appreciated bluish discoloration, no erythema, no increased warmth, pain, tenderness. Vital Signs: 09:01 BP 166 / 68; Pulse 69; Resp 16; Temp 97.8; Pulse Ox 100% on R/A; Weight 90.72 kg; iw Height 5 ft. 6 in. (167.64 cm); Pain 6/10; 10:33 BP 132 / 71; Pulse 67; Resp 18; Temp 97.5; Pulse Ox 100% on R/A; ph 09:01 Body Mass Index 32.28 (90.72 kg, 167.64 cm) iw MDM: 08:55 Patient medically screened. kristin 09:21 Differential diagnosis: closed fracture, contusion, tendonitis. Data reviewed: vital kristin signs, nurses notes, lab test result(s), radiologic studies, plain films. Data interpreted: classroom monitor: not applicable for this patient encounter. rate is 69 beats/min. Test interpretation: by ED physician or midlevel provider: plain radiologic studies. Counseling: I had a detailed discussion with the patient and/or guardian regarding: the historical points, exam findings, and any diagnostic results supporting the discharge/admit diagnosis, lab results, radiology results, the need for outpatient follow up, for definitive care, a family practitioner. 09/27 09:15 Order name: CBC with Diff; Complete Time: 10:18 [facility] 09/27 09:15 Order name: Comprehensive Metabolic Panel; Complete Time: 10:00 [facility] 09/27 09:15 Order name: Tib Fib Right XRAY; Complete Time: 10:00 [facility] 09/27 09:15 Order name: Sed Rate; Complete Time: 10:18 [facility] 09/27 09:15 Order name: Lumbar Spine (3 Views) XRAY; Complete Time: 10:00 [facility] 09/27 09:15 Order name: US Extremity Venous Unilateral Ltd kristin Administered Medications: 09:42 Drug: Doxycycline 100 mg Route: PO; ph 10:34 Follow up: Response: No adverse reaction ph 09:42 Drug: Ketorolac 15 mg Route: IVP; Site: right antecubital; ph 10:35 Follow up: Response: No adverse reaction ph 10:35 Follow up: Response: Pain is decreased ph Disposition Summary: 09/27/21 10:00 Discharge Ordered Location: Home [facility] Problem: new kristin Symptoms: have improved kristin Condition: Stable kristin Diagnosis - Laceration without foreign body, right lower leg kristin - Low back pain kristin - Sciatica, right side kristin Followup: kristin - With: - When: 2 - 3 days - Reason: Recheck today's complaints, Continuance of care, Re-evaluation by your physician Followup: kristin - With: Private Physician - When: 2 - 3 days - Reason: Recheck today's complaints, Continuance of care, Re-evaluation by your physician Discharge Instructions: - Discharge Summary Sheet kristin - Acute Back Pain, Adult kristin - Musculoskeletal Pain kristin - Sciatica kristin - Laceration Care, Adult, [id number] Forms: - Medication Reconciliation Form [facility] - Thank You Letter kristin - Antibiotic Education kristin - Prescription Opioid Use [facility] Prescriptions: - Doxycycline Hyclate 100 mg Oral Tablet - take 1 tablet by ORAL route every 12 hours; 20 tablet; Refills: 0, Product kristin Selection Permitted - Medrol (Marcelino) 4 mg Oral Tablets, Dose Pack - take 1 tablet by ORAL route as directed - follow package instructions; 1 kristin packet; Refills: 0, Product Selection Permitted - Motrin IB 200 mg Oral Tablet - take 2 tablet by ORAL route every 6 hours As needed as needed with food; 30 kristin tablet; Refills: 0, Product Selection Permitted Signatures: Dispatcher [employer] Obie Tapia MD MD cha Williams, Irene, RN RN Roxann Robert RN RN ph
--- NOTE | 2021-09-27 10:33 | RAD REPORT ---
EXAM DESCRIPTION: US - Extremity Venous Uni Ltd - 09/27/2021 10:18 am CLINICAL HISTORY: Pain COMPARISON: None. TECHNIQUE: Real-time sonographic evaluation of the right lower extremity deep venous system was perf ormed. FINDINGS: Normal compressibility, flow augmentation, phasic flow and spontaneous flow is identified in the right lower extremity deep venous system. No intraluminal filling defects seen. IMPRESSION: No DVT in the right lower extremity.
[2021-09-27 10:47] VITALS: O2SAT 100
[2021-09-27 10:49] VITALS: BP 132/71; TEMP 97.5
== END 2021-09-27 10:35 | disposition home or self-care (01) ==
LOC: ER 08:44
DX: S81.811A Laceration without foreign body, right lower leg, initial encounter (principal); W26.8XXA Contact with other sharp object(s), not elsewhere classified, initial encounter; Y93.9 Activity, unspecified; Y92.9 Unspecified place or not applicable; M54.50 Low back pain, unspecified; M54.31 Sciatica, right side; I10 Essential (primary) hypertension
CPT/HCPCS: 36415; 72100; 80053; 85025; 85652; 93971; 96374; 99284